=== PATIENT | male | born 1985 | race Caucasian/White ===

== ENCOUNTER 2022-12-14 16:27 | Emergency (ER) | payer OTHER, SELFPAY ==
--- NOTE | ~2022-12-14 | XR_ITS ---
EXAM: XR finger 2nd RT min 2V DATE: 12/14/2022 17:07 HISTORY: PAIN/SWELLING TO 2ND RT DIGIT AFTER CAT BITE X 2 DAYS . COMPARISON: None available. FINDINGS: Normal mineralization. No fracture or dislocation. No lytic or blastic lesion. Joint space s and physes are maintained. No erosion or periosteal change. Soft tissues within normal limits. IMPRESSION: No acute osseous finding in the right second digit. Reviewed, dictated and finalized at [facility].
[2022-12-14 16:31] VITALS: BP 170/100; PULSE 88; RESP 20; TEMP 36.5; O2SAT 100
--- NOTE | 2022-12-14 17:34 | ED.GENADULT ---
HPI - General Adult General Chief complaint: Animal Bite Stated complaint: cat bite Time Seen by Provider: 12/14/22 16:58 Source: patient Mode of arrival: ambulatory Limitations: no limitations History of Present Illness HPI narrative: This is a 36-year-old male who presents to the ED with chief complaint of a cat bite injury that occurred 2 days ago. Reports location of injury as the right index finger. He states he is having increasing pain in the distal right index finger. Reports some swelling in this area as well. Denies drainage. States he has been keeping the area clean and doing daily washes. Denies numbness or weakness. Denies fevers, chills, nausea, vomiting, spreading redness or swelling throughout the hand. Related Data Allergies Allergy/AdvReac Type Severity Reaction Status Date / Time No Known Allergies Allergy Verified 12/14/22 16:45 Review of Systems Review of Systems: All systems as dictated in HPI Exam Narrative: GENERAL: Well-appearing, well-nourished, and in no acute distress. HEAD: Normocephalic, atraumatic. EYES: PERRLA and EOMI. ENT: Nares clear, no rhinorrhea or epistaxis. Mucous membranes moist. Oropharynx without tonsillar hypertrophy exudate or other lesions. NECK: Supple. No adenopathy or masses. CHEST: No respiratory distress. Clear to auscultation. No wheezes rales or rhonchi HEART: Regular rate and rhythm. No murmur heard. Normal peripheral pulses. ABDOMEN: Soft, nontender, nondistended, normal active bowel sounds. MSK: RUE: Mild swelling to the distal tip of the right index finger. Moderate tenderness throughout the fingertip. No drainage. No fusiform swelling of the digit. No pain with passive extension. Full range of motion of the finger. LUE: Benign. SKIN: Warm, dry, no rash. NEURO: Alert and oriented x3. No focal deficits. PSYCH: Normal mood and affect. Course Vital Signs Vital signs: Vital Signs Temperature 97.7 F 12/14/22 16:31 Pulse Rate 88 12/14/22 16:31 Respiratory Rate 20 12/14/22 16:31 Blood Pressure 170/100 H 12/14/22 16:31 Pulse Oximetry 100 12/14/22 16:31 Oxygen Delivery Room Air 12/14/22 16:31 Temperature 97.7 F 12/14/22 16:31 Pulse Rate 88 12/14/22 16:31 Respiratory Rate 20 12/14/22 16:31 Blood Pressure 170/100 H 12/14/22 16:31 Pulse Oximetry 100 12/14/22 16:31 Oxygen Delivery Room Air 12/14/22 16:31 Medical Decision Making MDM Narrative Medical decision making narrative: This is a 36-year-old male who presents to the ED with chief complaint of right second finger pain and swelling following a cat bite injury a couple of days ago. Vitals are normal. Afebrile. Exam does show some swelling to the distal right index finger. kanavel signs negative. Digital block performed for pain relief. X-rays do not reveal any effusion or foreign bodies. No fracture. First dose of Augmentin given here. He was given a prescription for Augmentin and will be discharged in stable condition. Short [employer] [place] prescription given for breakthrough pain. Strict return precautions were given. Encouraged to follow-up with PCP. Patient is understanding and agreeable with plan for follow-up and discharge at this time. Vital Signs Vital Signs: Vital Signs Temperature 97.7 F 12/14/22 16:31 Pulse Rate 88 12/14/22 16:31 Respiratory Rate 20 12/14/22 16:31 Blood Pressure 170/100 H 12/14/22 16:31 Pulse Oximetry 100 12/14/22 16:31 Oxygen Delivery Room Air 12/14/22 16:31 Temperature 97.7 F 12/14/22 16:31 Pulse Rate 88 12/14/22 16:31 Respiratory Rate 20 12/14/22 16:31 Blood Pressure 170/100 H 12/14/22 16:31 Pulse Oximetry 100 12/14/22 16:31 Oxygen Delivery Room Air 12/14/22 16:31 Discharge Plan Discharge Clinical Impression: Cat bite Patient Disposition: Home, Self-Care Condition: Stable Instructions: Antibiotic Form Additional Instructions: Your exam is consisten
[2022-12-14] MEDS: AMOXICILLIN/CLAVULANATE K 875-125 MG TAB 1 TABLET PO (18:13)
== END 2022-12-14 18:33 | disposition home or self-care (01) ==
PROVIDERS: Emergency Provider Physician Assistant
DX: S61.250A Open bite of right index finger without damage to nail, initial encounter (principal); W55.01XA Bitten by cat, initial encounter
CPT/HCPCS: 73140; 99283; A9270

== ENCOUNTER → 2023-06-17 11:12 | Outpatient (CLI) | payer OTHER, SELFPAY ==
--- NOTE | ~2023-06-17 | XR_ITS ---
Lumbosacral Spine: AP and lateral views Clinical History: Pain Findings: The normal lordotic curve is maintained. The vertebral bodies and posterior elements are i ntact. The intervertebral disc spaces are preserved. The sacroiliac joints are normally outlined. Impression: No significant abnormality. Reviewed, dictated and finalized at [facility]. OPERATIONS Impression: No significant abnormality.
== END ==
PROVIDERS: PCP Emergency Medicine; Visit Provider Emergency Medicine
DX: M47.896 Other spondylosis, lumbar region (principal)
CPT/HCPCS: 72100